=== PATIENT | male | born 1980 | race Caucasian/White ===

== ENCOUNTER 2016-10-23 14:38 | Emergency (ER) | payer OTHER ==
--- NOTE | ~2016-10-23 | CR72 ---
[facility] A Service of [facility] & [facility] RADIOLOGY TEXT RESULTS PATIENT: BRINA DELGADO LOCATION: [facility] : 80 UNIT #: [id number] AGE: [address]: Gera Chris MD SEX: M ORDER DR: [id number] [facility] [address] [place], [place] [address] [id number] MR#: [id number] Acc #: [id number] NAME: BRINA DELGADO. : 1980 SEX: M STUDY DATE/TIME: 10/23/2016 1407 UNIT: [facility] ROOM: STUDY DESCRIPTION: CR Chest Single View Portable Attending Physician: Gera Chris M.D. Ordering Physician: Uri Sims D.O. Primary Care Physician: No Primary Care Physician MEDICAL IMAGING REPORT This report is preliminary unless electronic signature is present EXAM Chest portable 10/23/2016 1407 hours HISTORY 36-year-old with heroin overdose with hypoxia, shortness of air today. COMPARISON None. FINDINGS Portable upright chest demonstrates normal cardiac, mediastinal and hilar contours. The lungs are well expanded and clear of acute densities. Benign calcified granulomatous changes are stable. There are no effusions. No pneumothorax. IMPRESSION Benign calcified granulomatous changes. No acute cardiopulmonary findings. Dictated by... Esperanza Osorio M.D. THIS IS AN ELECTRONICALLY VERIFIED REPORT Esperanza Osorio M.D. at 10/23/2016 5:53 PM Kimberly TD: 10/23/2016 17:00 JOB #: [id number] MEDICAL IMAGING REPORT COPY
[~2016-10-23 14:38] MED LIST: BACTRIM DS TABL1 TAB PO; CELEXA PO; CLEOCIN HCL300 M1 PO; DOXYCYCLINE HY100 M3 PO; IBUPROFEN PO; KEFLEX PO; LORTAB 7.5-3251 EACH PO; NAPROXEN PO; NO MEDICATIONS; VICODIN 5/500 T1 TAB PO; ZYRTEC PO
== END 2016-10-23 17:00 | disposition home or self-care (01) ==
LOC: CED 14:38
DX: T40.1X1A Poisoning by heroin, accidental (unintentional), initial encounter (principal); Z88.2 Allergy status to sulfonamides
CPT/HCPCS: 36415; 71010; 96361; 96374; 99284; G0480